=== PATIENT | female | born 1975 | race Caucasian/White ===

== ENCOUNTER 2017-12-24 14:36 | Outpatient (CLI) | payer BC ==
--- NOTE | 2017-12-24 17:07 | MMO ---
BILATERAL DIGITAL SCREENING MAMMOGRAMS: Date: 12/24/17 HISTORY: 42-year-old female presents for digital screening mammogram. COMPARISON: 10/17/16. FINDINGS: This patient's mammogram was interpreted with the assistance of computer-aided detection. The breasts are heterogeneously dense, which can obscure underlying masses. There are bilateral typic ally benign calcifications. There are multiple bilateral areas of parenchymal density asymmetry which are stable. IMPRESSION: BIRADS 2: Benign Finding(s) Continue routine screening. POS: [facility]
== END 2017-12-24 14:37 | disposition home or self-care (01) ==
LOC: SCSMAMMO 14:36
PROVIDERS: ATTEND Family Medicine
DX: Z12.31 Encounter for screening mammogram for malignant neoplasm of breast (principal)
CPT/HCPCS: 77067

== ENCOUNTER 2022-01-03 07:32 | Outpatient (CLI) | payer BC | END 2022-01-03 07:33 | disposition home or self-care (01) | LOC: BICULT 07:32 | PROVIDERS: ATTEND Obstetrics & Gynecology | DX: N63.21 Unspecified lump in the left breast, upper outer quadrant (principal) ==

== ENCOUNTER 2022-07-10 07:44 | Outpatient (CLI) | payer BC | END 2022-07-10 07:45 | disposition home or self-care (01) | LOC: BICULT 07:44 | PROVIDERS: ATTEND Obstetrics & Gynecology | DX: N63.21 Unspecified lump in the left breast, upper outer quadrant (principal) ==

== ENCOUNTER → 2022-07-17 | Day surgery (SDC) | payer BC | END | disposition home or self-care (01) | LOC: BICULT 14:01 | PROVIDERS: ATTEND Family Medicine | PROC: 0H9U3ZX Drainage of Left Breast, Percutaneous Approach, Diagnostic (ICD-10-PCS; principal; 2022-07-17) | DX: D24.2 Benign neoplasm of left breast (principal); N60.22 Fibroadenosis of left breast | CPT/HCPCS: 19083; 88305 ==